=== PATIENT | female | born 1965 | race African-American/Black ===

== ENCOUNTER 2021-04-22 20:04 | Emergency (ER) | payer OTHER ==
[~2021-04-22] VITALS: Ht 157.5 cm; Wt 70.3 kg
[2021-04-22] MEDS ORDERED: HYDROcodone-ACET 10/325MG TAB PO ONE (21:45)
[2021-04-22 23:35] LABS: Basophils # (auto) 0 10 ^3/uL (0-0.2); Eosinophils # (auto) 0 10 ^3/uL (0-0.8); Hemoglobin 11.3 g/dL (12.2-16.2); Monocytes # (auto) 0.5 10 ^3/uL (0-1.3); Neutrophils # (auto) 3.9 10 ^3/uL (1.6-8.6); Nucleated Red Blood Cells % 0.1 %
[2021-04-22 23:36] LABS: Basophils % (auto) 0.7 % (0.0-2.0); Eosinophils % (auto) 0.7 % (0.0-7.0); Hematocrit 34.2 % (36.0-46.0); Lymphocytes # (auto) 1.5 10 ^3/uL (0.4-5.4); Lymphocytes % (auto) 25.5 % (10.0-50.0); Mean Corpuscular Hemoglobin 22.7 pg (28.0-32.0); Mean Corpuscular Hgb Conc. 33.2 g/dL (32.0-36.0); Mean Corpuscular Volume 68.4 fL (80.0-100.0); Monocytes % (auto) 8.6 % (0.0-12.0); Neutrophils % (auto) 64.5 % (37.0-80.0); Red Cell Distribution Width 15.1 % (11.8-14.3)
[2021-04-22 23:52] LABS: Potassium 4.1 mmol/L (3.5-5.1)
[2021-04-22 23:57] LABS: Albumin 2.7 g/dL (3.4-5.0); BUN/Creatinine Ratio 13.8; Calcium 8.5 mg/dL (8.5-10.1)
[2021-04-23] LABS: Bilirubin, Total 0.2 mg/dL (0.2-1.0); Total Protein 6.4 g/dL (6.4-8.2)
[2021-04-23 00:46] VITALS: BP 91/51
== END 2021-04-23 01:51 | disposition home or self-care (01) ==
LOC: EDBD 20:04 → ER 20:11
DX: M54.6 Pain in thoracic spine (principal); F31.9 Bipolar disorder, unspecified; Z88.6 Allergy status to analgesic agent; W18.39XA Other fall on same level, initial encounter; Y93.89 Activity, other specified; Y92.89 Other specified places as the place of occurrence of the external cause; Y99.8 Other external cause status
CPT/HCPCS: 36415; 72128; 80053; 85025; 85379